=== PATIENT | male | born 1990 | race Two or more races ===

== ENCOUNTER 2021-08-10 16:21 | Emergency (ER) | payer OTHER ==
[~2021-08-10] VITALS: Ht 180.3 cm; Wt 102.1 kg
[2021-08-10] MEDS ORDERED: ACETAMINOPHEN 500 MG TAB PO ONE (20:45)
[2021-08-10] MEDS ORDERED: PRED20TA2 PO (21:45)
[2021-08-10] MEDS ORDERED: ALBUAER3 IN (21:45)
[2021-08-10] MEDS ORDERED: IBUP800T27 PO (21:45)
[2021-08-10] MEDS ORDERED: GUAI600T23 PO (21:45)
[2021-08-10 22:23] VITALS: BP 134/86
== END 2021-08-10 22:59 | disposition home or self-care (01) ==
LOC: ER 16:21
DX: U07.1 COVID-19 (principal); I10 Essential (primary) hypertension
CPT/HCPCS: 36415; 71046; 87426; 87804; 93005